=== PATIENT | male | born 1995 | race Caucasian/White ===

== ENCOUNTER 2022-01-04 18:04 | Outpatient (REF) | payer OTHER, SELFPAY ==
[2022-01-06 09:38] LABS: Hep B Core Antibody Negative (Negative)
[2022-01-06 09:44] LABS: HIV-1/2 Ag & Ab Screen Negative (Negative)
[2022-01-06 11:12] LABS: Syphilis Serology (RPR) Negative (Negative)
== END 2022-01-04 18:05 | disposition home or self-care (01) ==
LOC: LBN 18:04
PROVIDERS: Visit Provider Family Medicine
DX: R30.0 Dysuria (principal); Z11.4 Encounter for screening for human immunodeficiency virus [HIV]; Z11.59 Encounter for screening for other viral diseases
CPT/HCPCS: 86704; 87389; 87491; 87591; 86592